=== PATIENT | female | born 1960 | race Caucasian/White ===

== ENCOUNTER 2016-11-09 06:58 | Emergency (ER) | payer OTHER ==
[~2016-11-09] VITALS: Ht 182.9 cm; Wt 75.6 kg
[~2016-11-09 06:58] MED LIST: BENADRYL50 MG PO; CELECOXIB200 MG PO; COMBIVENT RESPIM4 GM IH; COMBIVENT200 INHALA IH; DEBROX15 ML BOTH EARS; DOCUSATE SODIU100 MG PO; DUONEB 2.5-0.5 M3 ML IH; ENDOCET 5-3251 EACH PO; FLOVENT 11120 INHALA IH; HYDROCHLOROTHIA25 MG PO; K-DUR10 ME1 PO; LOVENOX40 MG/0.4 SC; MOTRIN600 MG PO; MOTRIN800 MG PO; MUCUS ER600 MG PO; PERCOCET 10/1 TABLET PO; PERCOCET 5-3251 EACH PO; PREDNISONE10 MG PO; PROAIR HFA8.5 GM IH; SOMA350 MG PO; VALIUM5 MG PO; lasix; lisinopril
[2016-11-09 07:48] LABS: BASOPHIL COUNT 0.1 K/uL (0-0.1); EOSINOPHIL COUNT 0.3 K/uL (0-0.3); HEMATOCRIT 43.6 % (36.0-46.0); IMMATURE GRANULOCYTE (%) 0.6 % (0.0-0.7); INSTRUMENT ABS NEUTROPHIL CT 3.8 K/uL; LYMPHOCYTE COUNT 1.6 K/uL (1.0-2.8); MCH 30.9 PG (29.0-34.0); MCHC 33.9 G/DL (30.0-36.0); MEAN PLAT.VOLUME 9.9 uM^3 (9.5-12.4); MONOCYTE (%) 11.7 % (3-12); MONOCYTE COUNT 0.8 K/uL (0-0.8); NEUTROPHIL (%) 58.3 % (45-76); NEUTROPHIL COUNT 3.8 K/uL (1.8-6.4); PLATELET COUNT 217 K/uL (156-360); RBC DIS.WIDTH-CV 11.9 % (11.8-14.6); RBC DIS.WIDTH-SD 39.8 % (39-53); RED BLOOD COUNT 4.79 M/uL (3.80-5.20); WHITE BLOOD COUNT 6.6 K/uL (4.1-10.2)
[2016-11-09 08:01] LABS: CHLORIDE 106 mEq/L (99-109); POTASSIUM 4.2 mEq/L (3.7-5.4); SODIUM 141 mEq/L (136-147)
[2016-11-09 08:04] LABS: GLUCOSE 95 mg/dL (70-99)
[2016-11-09 08:05] LABS: ANION GAP 7 MEQ/L (2-14)
[2016-11-09 08:06] LABS: TOTAL BILIRUBIN 0.7 mg/dL (0.0-1.0)
[2016-11-09 08:07] LABS: ALKALINE PHOSPHATASE 43 IU/L (3-129); GFR ESTIMATE (CALCULATED) > 59 mL/min/
[2016-11-09 08:08] LABS: UREA NITROGEN (BUN) 12 mg/dL (9-23)
[2016-11-09 08:33] LABS: ADD MIUA? NO; BILIRUBIN NEGATIVE; BLOOD NEGATIVE; COLOR YELLOW ((YELLOW)); GLUCOSE (STRIP) NEGATIVE; KETONES NEGATIVE; LEUKOCYTES NEGATIVE; NITRITE NEGATIVE; PROTEIN (STRIP) NEGATIVE; SPECIFIC GRAVITY 1.013 (1.000-1.030); UCUL ADDED? NO; UROBILINOGEN 0.2 MG/DL (0.2-1.0)
[2016-11-09] MEDS ORDERED: PROAIR HFA8.5 GM IH (09:25)
[2016-11-09 09:33] VITALS: BP 127/85
== END 2016-11-09 09:34 | disposition home or self-care (01) ==
LOC: EME 06:58
PROVIDERS: Emergency Medicine
DX: R19.7 Diarrhea, unspecified (principal); J06.9 Acute upper respiratory infection, unspecified; I10 Essential (primary) hypertension; J44.9 Chronic obstructive pulmonary disease, unspecified; Z72.0 Tobacco use; Z88.0 Allergy status to penicillin; Z88.5 Allergy status to narcotic agent
CPT/HCPCS: 71020; 80053; 81003; 85025; 87493; 99281; 99284; J7030

== ENCOUNTER 2016-11-17 17:48 | Observation (INO) | payer OTHER ==
[~2016-11-17] VITALS: Ht 182.9 cm; Wt 74.9 kg
[2016-11-17 19:02] LABS: HEMATOCRIT 42.8 % (36.0-46.0); MCH 31.2 PG (29.0-34.0); MCHC 34.8 G/DL (30.0-36.0); MCV 89.5 FL (83-99); MEAN PLAT.VOLUME 9.5 uM^3 (9.5-12.4); PLATELET COUNT 197 K/uL (156-360); RBC DIS.WIDTH-CV 11.8 % (11.8-14.6); RBC DIS.WIDTH-SD 38.9 % (39-53); RED BLOOD COUNT 4.78 M/uL (3.80-5.20); WHITE BLOOD COUNT 7.4 K/uL (4.1-10.2)
[2016-11-17 19:11] LABS: CHLORIDE 102 mEq/L (99-109); SODIUM 138 mEq/L (136-147)
[2016-11-17 19:13] LABS: GLUCOSE 94 mg/dL (70-99)
[2016-11-17 19:14] LABS: ANION GAP 11 MEQ/L (2-14)
[2016-11-17 19:17] LABS: GFR ESTIMATE (CALCULATED) > 59 mL/min/
[2016-11-17 19:18] LABS: UREA NITROGEN (BUN) 9 mg/dL (9-23)
[2016-11-17 19:43] LABS: TOTAL BILIRUBIN 1.5 mg/dL (0.0-1.0)
[2016-11-17 19:44] LABS: ALKALINE PHOSPHATASE 47 IU/L (3-129)
[2016-11-17 19:47] LABS: DIRECT BILIRUBIN 0.5 mg/dL (0.0-0.3)
[2016-11-17 19:48] LABS: LIPASE 17 U/L (1.0-51.0)
[2016-11-17 20:01] LABS: ADD MIUA? NO; BILIRUBIN NEGATIVE; BLOOD NEGATIVE; COLOR YELLOW ((YELLOW)); GLUCOSE (STRIP) NEGATIVE; KETONES NEGATIVE; LEUKOCYTES NEGATIVE; NITRITE NEGATIVE; PROTEIN (STRIP) NEGATIVE; SPECIFIC GRAVITY 1.009 (1.000-1.030); UCUL ADDED? NO; UROBILINOGEN 0.2 MG/DL (0.2-1.0)
[2016-11-17] MEDS ORDERED: IBUPROFEN800 MG PO (22:23)
[2016-11-17] MEDS ORDERED: LISINOPRIL20 MG PO (22:23)
[2016-11-17] MEDS ORDERED: TIZANIDINE HCL4 MG PO ×2 (22:24)
[2016-11-17] MEDS ORDERED: GABAPENTIN300 MG PO ×2 (22:24)
[2016-11-18 00:38] VITALS: BP 128/74
[2016-11-18 06:35] LABS: HEMATOCRIT 38.7 % (36.0-46.0); MCH 30.4 PG (29.0-34.0); MCHC 33.6 G/DL (30.0-36.0); MCV 90.6 FL (83-99); MEAN PLAT.VOLUME 9.6 uM^3 (9.5-12.4); PLATELET COUNT 162 K/uL (156-360); RBC DIS.WIDTH-CV 11.9 % (11.8-14.6); RBC DIS.WIDTH-SD 39.8 % (39-53); RED BLOOD COUNT 4.27 M/uL (3.80-5.20); WHITE BLOOD COUNT 4.4 K/uL (4.1-10.2)
[2016-11-18 06:57] LABS: ALKALINE PHOSPHATASE 31 IU/L (3-129); ANION GAP 6 MEQ/L (2-14); CHLORIDE 105 MEQ/L (99-109); GFR ESTIMATE (CALCULATED) > 59 mL/min/; GLUCOSE 96 mg/dL (70-99); SAMPLE HEMOLYSIS CHECK 0; SAMPLE ICTERIC CHECK 0; SAMPLE LIPEMIA CHECK 0; SODIUM 140 MEQ/L (136-147); TOTAL BILIRUBIN 1.4 MG/DL (0.0-1.0); UREA NITROGEN (BUN) 13 mg/dL (9-23)
[2016-11-18 08:11] VITALS: BP 116/65
[2016-11-18] MEDS ORDERED: PROTONIX40 MG PO (14:20)
[2016-11-18 16:35] VITALS: BP 122/69
== END 2016-11-18 17:50 | disposition home or self-care (01) ==
LOC: EME 17:48 → EDOF 22:50 → 5EAST 22:50 → EDOF 22:50 → ENRESERV 22:52 → EDOF 23:27 → ENRESERV 23:29 → 5EAST 11-18 00:07
PROVIDERS: Internal Medicine
PROC: 0DB68ZX Excision of Stomach, Via Natural or Artificial Opening Endoscopic, Diagnostic (ICD-10-PCS; principal; 2016-11-18)
DX: K25.7 Chronic gastric ulcer without hemorrhage or perforation (principal); K26.9 Duodenal ulcer, unspecified as acute or chronic, without hemorrhage or perforation; K29.50 Unspecified chronic gastritis without bleeding; B96.81 Helicobacter pylori [H. pylori] as the cause of diseases classified elsewhere; J44.9 Chronic obstructive pulmonary disease, unspecified; I10 Essential (primary) hypertension; F17.200 Nicotine dependence, unspecified, uncomplicated; Z90.49 Acquired absence of other specified parts of digestive tract; R30.0 Dysuria; R31.9 Hematuria, unspecified; Z82.49 Family history of ischemic heart disease and other diseases of the circulatory system; G43.909 Migraine, unspecified, not intractable, without status migrainosus; M81.0 Age-related osteoporosis without current pathological fracture; Z88.0 Allergy status to penicillin; Z88.5 Allergy status to narcotic agent; Z91.018 Allergy to other foods
CPT/HCPCS: 74176; 74183; 80048; 80053; 80076; 81003; 83690; 85027; 87086; 88305; 88342 TC; 94640; 99202; 99281; 99285; G0378; J1170; J1644; J1885; J2405; J3010; J7030; J7050; S0028

== ENCOUNTER 2016-11-20 14:06 | Emergency (ER) | payer OTHER ==
[~2016-11-20] VITALS: Ht 167.6 cm; Wt 72.7 kg
[~2016-11-20 14:06] MED LIST changes: +GABAPENTIN300 MG PO; +IBUPROFEN800 MG PO; +LISINOPRIL20 MG PO; +PROTONIX40 MG PO; +TIZANIDINE HCL4 MG PO
[2016-11-20 15:14] LABS: ADD MIUA? NO; BILIRUBIN NEGATIVE; BLOOD NEGATIVE; COLOR STRAW ((YELLOW)); GLUCOSE (STRIP) NEGATIVE; KETONES NEGATIVE; LEUKOCYTES NEGATIVE; NITRITE NEGATIVE; PROTEIN (STRIP) NEGATIVE; SPECIFIC GRAVITY 1.006 (1.000-1.030); UROBILINOGEN 0.2 MG/DL (0.2-1.0)
[2016-11-20 15:18] LABS: HEMATOCRIT 38.3 % (36.0-46.0); MCH 31.4 PG (29.0-34.0); MCHC 34.7 G/DL (30.0-36.0); MCV 90.3 FL (83-99); MEAN PLAT.VOLUME 9.3 uM^3 (9.5-12.4); PLATELET COUNT 181 K/uL (156-360); RBC DIS.WIDTH-CV 11.7 % (11.8-14.6); RBC DIS.WIDTH-SD 38.5 % (39-53); RED BLOOD COUNT 4.24 M/uL (3.80-5.20); WHITE BLOOD COUNT 6.8 K/uL (4.1-10.2)
[2016-11-20 15:26] LABS: CHLORIDE 103 mEq/L (99-109); POTASSIUM 4.1 mEq/L (3.7-5.4); SODIUM 138 mEq/L (136-147)
[2016-11-20 15:28] LABS: GLUCOSE 100 mg/dL (70-99)
[2016-11-20 15:30] LABS: ANION GAP 8 MEQ/L (2-14)
[2016-11-20 15:32] LABS: ALKALINE PHOSPHATASE 43 IU/L (3-129); GFR ESTIMATE (CALCULATED) > 59 mL/min/
[2016-11-20 15:33] LABS: TOTAL BILIRUBIN 0.5 mg/dL (0.0-1.0); UREA NITROGEN (BUN) 16 mg/dL (9-23)
[2016-11-20 15:36] LABS: LIPASE 26 U/L (1.0-51.0)
[2016-11-20] MEDS ORDERED: PERCOCET 5/31 TABLET PO (18:38)
[2016-11-20 18:49] VITALS: BP 118/70
== END 2016-11-20 18:52 | disposition home or self-care (01) ==
LOC: EME 14:06
PROVIDERS: Nurse Practitioner Family
DX: R10.11 Right upper quadrant pain (principal); R11.0 Nausea; Z90.49 Acquired absence of other specified parts of digestive tract; J44.9 Chronic obstructive pulmonary disease, unspecified; I10 Essential (primary) hypertension; F17.200 Nicotine dependence, unspecified, uncomplicated
CPT/HCPCS: 74177; 80053; 81003; 83605; 83690; 85027; 99281; 99285; J3010; J7030

== ENCOUNTER 2017-01-13 18:35 | Emergency (ER) | payer OTHER ==
[~2017-01-13] VITALS: Ht 182.9 cm; Wt 72.7 kg
[~2017-01-13 18:35] MED LIST changes: +PERCOCET 5/31 TABLET PO
[2017-01-13 19:01] VITALS: BP 100/65
[2017-01-13 20:06] LABS: HEMATOCRIT 39.6 % (36.0-46.0); MCHC 35.4 G/DL (30.0-36.0); MCV 90.4 FL (83-99); MEAN PLAT.VOLUME 9.8 uM^3 (9.5-12.4); PLATELET COUNT 196 K/uL (156-360); RBC DIS.WIDTH-CV 11.9 % (11.8-14.6); RBC DIS.WIDTH-SD 39.6 % (39-53); RED BLOOD COUNT 4.38 M/uL (3.80-5.20); WHITE BLOOD COUNT 7.4 K/uL (4.1-10.2)
[2017-01-13 20:23] LABS: CHLORIDE 104 mEq/L (99-109); POTASSIUM 3.9 mEq/L (3.7-5.4); SODIUM 141 mEq/L (136-147)
[2017-01-13 20:25] LABS: GLUCOSE 94 mg/dL (70-99)
[2017-01-13 20:26] LABS: ANION GAP 13 MEQ/L (2-14)
[2017-01-13 20:27] LABS: TOTAL BILIRUBIN 0.9 mg/dL (0.0-1.0)
[2017-01-13 20:29] LABS: ALKALINE PHOSPHATASE 51 IU/L (3-129); GFR ESTIMATE (CALCULATED) > 59 mL/min/
[2017-01-13 20:30] LABS: UREA NITROGEN (BUN) 28 mg/dL (9-23)
[2017-01-13 23:58] LABS: TROP-I INTERPRETATION NEGATIVE; TROPONIN-I < 0.01 ng/mL (0.0-0.30)
[2017-01-14] MEDS ORDERED: PERCOCET 5/31 TABLET PO (01:14)
== END 2017-01-14 01:24 | disposition home or self-care (01) ==
LOC: EME 18:35
PROVIDERS: Nurse Practitioner Family; Physician Assistant Medical
PROC: 2W39X1Z Immobilization of Left Upper Extremity using Splint (ICD-10-PCS; principal; 2017-01-14)
DX: R55 Syncope and collapse (principal); S62.645A Nondisplaced fracture of proximal phalanx of left ring finger, initial encounter for closed fracture; M79.672 Pain in left foot; W18.30XA Fall on same level, unspecified, initial encounter; J44.9 Chronic obstructive pulmonary disease, unspecified; I10 Essential (primary) hypertension; Z88.0 Allergy status to penicillin; Z88.5 Allergy status to narcotic agent; Z87.891 Personal history of nicotine dependence
CPT/HCPCS: 70450; 73130; 73630; 80053; 84484; 85027; 93005; 99281; 99285; J3010; J7030

== ENCOUNTER 2017-04-11 11:01 | Day surgery (SDC) | payer OTHER ==
[~2017-04-11] VITALS: Ht 182.9 cm; Wt 72.6 kg
[~2017-04-11 11:01] MED LIST changes: +OXYCODONE-APAP1 EACH PO
== END 2017-04-11 20:27 | disposition home or self-care (01) ==
LOC: CATH 11:01
DX: I25.10 Atherosclerotic heart disease of native coronary artery without angina pectoris (principal); J43.1 Panlobular emphysema; F17.200 Nicotine dependence, unspecified, uncomplicated; G89.4 Chronic pain syndrome; M19.90 Unspecified osteoarthritis, unspecified site; Z88.0 Allergy status to penicillin; Z88.5 Allergy status to narcotic agent
CPT/HCPCS: C1769; C1887; J1644; J2250; J3010; J7040

== ENCOUNTER 2017-04-27 11:55 | Emergency (ER) | payer OTHER ==
[~2017-04-27] VITALS: Ht 182.9 cm; Wt 68.1 kg
[2017-04-27] MEDS ORDERED: MEDROL DOSEPAK4 MG PO (16:46)
[2017-04-27] MEDS ORDERED: LIDODERM 5% P1 PATCH TD (16:46)
[2017-04-27] MEDS ORDERED: FLEXERIL10 MG PO (16:46)
[2017-04-27 17:40] VITALS: BP 118/68
== END 2017-04-27 17:52 | disposition home or self-care (01) ==
LOC: EME 11:55
DX: M54.42 Lumbago with sciatica, left side (principal); G89.29 Other chronic pain; F17.210 Nicotine dependence, cigarettes, uncomplicated; F10.11 Alcohol abuse, in remission; J44.9 Chronic obstructive pulmonary disease, unspecified; I10 Essential (primary) hypertension; M81.0 Age-related osteoporosis without current pathological fracture; Z88.5 Allergy status to narcotic agent; Z88.0 Allergy status to penicillin
CPT/HCPCS: 99281; 99284; J1885

== ENCOUNTER 2017-06-15 21:35 | Observation (INO) | payer OTHER ==
[~2017-06-15] VITALS: Ht 182.9 cm; Wt 63.6 kg
[~2017-06-15 21:35] MED LIST changes: +FLEXERIL10 MG PO; +LIDODERM 5% P1 PATCH TD; +MEDROL DOSEPAK4 MG PO
[2017-06-16 09:50] VITALS: BP 129/77
[2017-06-16 18:09] VITALS: BP 145/89
[2017-06-16] MEDS ORDERED: PERCOCET 10/1 TABLET PO (19:04)
[2017-06-16] MEDS ORDERED: ZANAFLEX4 MG PO (19:05)
== END 2017-06-16 20:36 | disposition home or self-care (01) ==
LOC: ENRESERV 21:35 → 2SOUTH 06-16 08:00 → ENRESERV 06-16 16:16 → 3EAST 06-16 17:44
DX: M47.12 Other spondylosis with myelopathy, cervical region (principal); M50.022 Cervical disc disorder at C5-C6 level with myelopathy; G95.89 Other specified diseases of spinal cord; M40.292 Other kyphosis, cervical region; R26.89 Other abnormalities of gait and mobility; M50.222 Other cervical disc displacement at C5-C6 level; M25.78 Osteophyte, vertebrae; G95.20 Unspecified cord compression; F17.200 Nicotine dependence, unspecified, uncomplicated; J45.909 Unspecified asthma, uncomplicated; M85.80 Other specified disorders of bone density and structure, unspecified site; G89.29 Other chronic pain; Z85.43 Personal history of malignant neoplasm of ovary; M06.9 Rheumatoid arthritis, unspecified; M19.90 Unspecified osteoarthritis, unspecified site; Z90.49 Acquired absence of other specified parts of digestive tract; Z90.722 Acquired absence of ovaries, bilateral; Z79.52 Long term (current) use of systemic steroids
CPT/HCPCS: 72020; 72052; 72141; 76000; C1713; G0378; J1100; J2250; J2405; J2710; J3010; J3370; J7643